=== PATIENT | male | born 1995 ===

== ENCOUNTER 2018-07-07 13:06 | Emergency (ER) | payer BC ==
[2018-07-07 13:24] VITALS: BP 128/67
--- NOTE | 2018-07-07 13:43 | UC ---
Head Injury HPI - HPI Summary HPI Summary: head injury x 1 day head injury as he was playing soccer, was hit by another play to his left side push him to a wall and his head hit the wall , no loc but he did "black out " + headache, nausea , no vomiting , + photophobia - History Of Current Complaint Chief Complaint: UCHeadInjury Stated Complaint: HEAD/BACK/HIP/CHEST INJURY Time Seen by Provider: 07/07/18 13:12 Hx Obtained From: Patient Onset/Duration: Sudden Onset, Lasting Days - 1, Still Present Severity Currently: Moderate Severity Initially: Moderate Pain Intensity: 6 Character: Dull Aggravating Factor(s): Other - sports Alleviating Factor(s): Other - rest Associated Signs And Symptoms: Positive: Confusion, Neck Pain, Other - photophobia. Negative: LOC (Time In Secs./Mins/Hrs), LOC Duration Unknown, Memory Loss, Seizure, Epistaxis, Dental Malocclusion, Nausea, Vomiting - Allergies/Home Medications Allergies/Adverse Reactions: Allergies Allergy/AdvReac Type Severity Reaction Status Date / Time seasonal Allergy Sneezing Uncoded 07/07/18 13:24 Home Medications: Home Medications Amphetamine MIXED SALTS TAB* [Adderall TAB*] 15 mg PO SEE INSTRUCTIONS PRN 07/07 [History Confirmed 07/07/18] PMH/Surg Hx/FS Hx/Imm Hx Previously Healthy: Yes - Surgical History Surgical History: Yes Surgery Procedure, Year, and Place: groin hernia, plastic surgery s/p injury - Family History Known Family History: Negative: Diabetes - Social History Alcohol Use: Rare Substance Use Type: None Smoking Status (MU): Former Smoker Review of Systems All Other Systems Reviewed And Are Negative: Yes Constitutional: Positive: Negative Skin: Positive: Negative Eyes: Positive: Blurred Vision, Photophobia ENT: Positive: Negative Cardiovascular: Positive: Negative Gastrointestinal: Positive: Negative Neurological: Positive: Headache Psychological: Positive: Negative Is Patient Immunocompromised?: No Physical Exam Triage Information Reviewed: Yes Appearance: Well-Appearing, No Pain Distress, Well-Nourished Vital Signs: Initial Vital Signs Temp 97.3 F 07/07/18 13:15 Pulse 64 07/07/18 13:15 Resp 16 07/07/18 13:15 BP 128/67 07/07/18 13:15 Pulse Ox 100 07/07/18 13:15 Vital Signs Reviewed: Yes Eye Exam: Normal ENT: Positive: Normal ENT inspection, Hearing grossly normal, Pharynx normal Neck: Positive: Supple, Nontender, No Lymphadenopathy Respiratory: Positive: Chest non-tender, Lungs clear, Normal breath sounds Cardiovascular: Positive: RRR, No Murmur, Pulses Normal Abdominal Exam: Normal Abdomen Description: Positive: Nontender, Soft. Negative: CVA Tenderness (R), CVA Tenderness (L), Distended, Guarding Bowel Sounds: Positive: Present Musculoskeletal: Positive: Strength Intact, ROM Intact, No Edema Neurological Exam: Normal Skin Exam: Normal UC Physical Exam Vital Signs On Initial Exam: Initial Vitals Temp Pulse Resp BP Pulse Ox 97.3 F 64 16 128/67 100 07/07/18 13:15 07/07/18 13:15 07/07/18 13:15 07/07/18 13:15 07/07/18 13:15 - Neurological Exam Neurological: Normal, Sensory/Motor Intact, Alert, Oriented to Person Place, Time, CN Intact II-III, Reflexes Intact, Normal Gait, Speech Normal Head Injury Course/Dx - Differential Dx/Diagnosis Provider Diagnosis: Concussion, Contusion Discharge - Sign-Out/Discharge Documenting (check all that apply): Patient Departure All imaging exams completed and their final reports reviewed: No Studies - Discharge Plan Condition: Stable Disposition: HOME Patient Education Materials: Concussion (ED), Contusion in Adults (ED) Forms: *School Release Additional Instructions: no contact sports until your are symptom free follow up in 7 to 10 days as needed - Billing Disposition and Condition Condition: STABLE Disposition: Home
== END 2018-07-07 13:50 | disposition home or self-care (01) ==
LOC: UCCORT 13:06
DX: S06.0X9A Concussion with loss of consciousness of unspecified duration, initial encounter (principal); S00.93XA Contusion of unspecified part of head, initial encounter; Z91.09 Other allergy status, other than to drugs and biological substances; W22.01XA Walked into wall, initial encounter; Y92.9 Unspecified place or not applicable
CPT/HCPCS: 81003; 99201; G0463